=== PATIENT | female | born 1940 | race Hispanic/Latino ===

== ENCOUNTER → 2018-02-26 | Outpatient (CLI) | payer OTHER ==
[~2018-02-26] MED LIST: CALC600T12 PO; FISH1CAP63 PO; LEVO75TA10 PO; NAPR-1023 PO; PANT40TA25 PO; PREG25 PO; TRAM50TA2 PO; VITAD400 PO
== END | disposition home or self-care (01) ==
LOC: OIH 09:45
PROVIDERS: ATTEND Internal Medicine
DX: S33.140A Subluxation of L4/L5 lumbar vertebra, initial encounter (principal); M47.896 Other spondylosis, lumbar region; X58.XXXA Exposure to other specified factors, initial encounter; Y93.89 Activity, other specified; Y92.89 Other specified places as the place of occurrence of the external cause; Y99.8 Other external cause status
CPT/HCPCS: 72100